=== PATIENT | female | born 1950 | race African-American/Black ===

== ENCOUNTER 2017-02-23 10:28 | Outpatient (CLI) | payer MEDICARE ==
[2017-02-23] MEDS ORDERED: DOBUTAMINE Stress 100 MG in D5W 75 ML IV ONE (12:00)
== END 2017-02-23 10:29 | disposition home or self-care (01) ==
LOC: CARD 10:28
PROVIDERS: ATTEND Student in an Organized Health Care Education/Training Program
DX: R00.2 Palpitations (principal); R94.31 Abnormal electrocardiogram [ECG] [EKG]
CPT/HCPCS: 93017; 93320; 93325; 93350; J1250